=== PATIENT | female | born 1990 | race Caucasian/White ===

== ENCOUNTER → 2019-08-25 | Outpatient (CLI) | payer BC | LOC: LABNPT 14:51 → EDBD 14:51 | PROVIDERS: ATTEND Nurse Practitioner Family | DX: R50.9 Fever, unspecified (principal); R05 Cough | CPT/HCPCS: 87635 ==

== ENCOUNTER → 2019-11-26 | Outpatient (CLI) | payer BC | LOC: LABNPT 06:52 | PROVIDERS: ATTEND Family Medicine | DX: Z20.828 Contact with and (suspected) exposure to other viral communicable diseases (principal) | CPT/HCPCS: 87635 ==

== ENCOUNTER 2021-07-28 08:28 | Outpatient (RCR) | payer BC, OTHER | END 2021-07-31 | disposition home or self-care (01) | PROVIDERS: ATTEND Nurse Practitioner Family | DX: R10.2 Pelvic and perineal pain (principal) ==

== ENCOUNTER 2021-08-31 09:16 | Outpatient (RCR) | payer OTHER | END 2021-08-31 10:25 | disposition home or self-care (01) | PROVIDERS: ATTEND Nurse Practitioner Family | DX: R10.2 Pelvic and perineal pain (principal) ==